=== PATIENT | female | born 1995 | race Caucasian/White ===

== ENCOUNTER 2017-04-06 23:50 | Emergency (ER) | payer OTHER ==
[~2017-04-06] VITALS: Ht 160 cm; Wt 57.3 kg
[2017-04-07 00:48] LABS: PATH.CAST-FLAG NOT PRESENT; SPERM-FLAG NOT PRESENT; SRC-FLAG NOT PRESENT; XTAL-FLAG NOT PRESENT; YLC-FLAG NOT PRESENT
[2017-04-07 01:14] LABS: HEMATOCRIT 30.5 % (34.6-47.8); HEMOGLOBIN 10.5 g/dL (11.7-16.4); WHITE BLOOD COUNT 8.4 x10^3/uL (3.4-10)
[2017-04-07 01:15] VITALS: BP 114/69
[2017-04-07 01:22] LABS: BLOOD UREA NITROGEN 12 mg/dL (7-18)
== END 2017-04-07 02:01 | disposition home or self-care (01) ==
LOC: ED 23:59
DX: O46.92 Antepartum hemorrhage, unspecified, second trimester (principal); Z3A.17 17 weeks gestation of pregnancy
CPT/HCPCS: 36415; 76805; 80048; 81001; 82040; 85025; 86901; 99285

== ENCOUNTER 2017-05-15 18:01 | Outpatient (CLI) | payer OTHER ==
[2017-05-15 18:26] VITALS: BP 110/57
[2017-05-15 18:40] LABS: MICROSCOPIC AUTO
== END 2017-05-15 19:05 | disposition home or self-care (01) ==
LOC: LDOP 18:01
PROVIDERS: ATTEND Obstetrics & Gynecology Gynecology
DX: O26.892 Other specified pregnancy related conditions, second trimester (principal); R11.10 Vomiting, unspecified; Z3A.22 22 weeks gestation of pregnancy
CPT/HCPCS: 59025; 81001; 87086; 99211; G0463